=== PATIENT | female | born 1995 | race Caucasian/White ===

== ENCOUNTER → 2017-09-25 | Day surgery (SDC) | payer BC ==
[~2017-09-25] MED LIST: LIDOCAINE 1%/EPI 1:100,000 20 ML VIAL. INJ
[2017-09-25] MEDS: LIDOCAINE 1%/EPI 1:100,000 20 ML VIAL. INJ (13:40)
== END ==
LOC: SURG 11:33
DX: L92.8 Other granulomatous disorders of the skin and subcutaneous tissue (principal); L08.89 Other specified local infections of the skin and subcutaneous tissue; J45.909 Unspecified asthma, uncomplicated; K58.0 Irritable bowel syndrome with diarrhea; K83.1 Obstruction of bile duct; Z79.899 Other long term (current) drug therapy; Z90.710 Acquired absence of both cervix and uterus; Z90.49 Acquired absence of other specified parts of digestive tract
CPT/HCPCS: 11401; 88304; J3490